=== PATIENT | female | born 2000 | race Caucasian/White ===

== ENCOUNTER → 2024-08-02 | Day surgery (SDC) | payer BC ==
[~2024-08-02] MED LIST: FAMOTIDINE20 MG PO; FENTANYL CITRATE/PF 100MCG/2 ML INJ ONE; LIDOCAINE HCL 2% LOCAL INJ 5 ML SDV VIAL INJ ONE; PROPOFOL IV EMULSION 10 MG/ML 20 ML VIAL ONE
[2024-08-02] MEDS: LACTATED RINGER'S 1,000 ML ONE (06:49)
[2024-08-02 08:35] VITALS: BP 100/63; PULSE 54; RESP 18; TEMP 98.2; O2SAT 99
== END | disposition home or self-care (01) ==
LOC: OR 06:00
PROVIDERS: ATTEND Internal Medicine Gastroenterology
DX: K21.9 Gastro-esophageal reflux disease without esophagitis (principal); K29.70 Gastritis, unspecified, without bleeding; K20.90 Esophagitis, unspecified without bleeding; Z91.041 Radiographic dye allergy status
CPT/HCPCS: 43239; 81025; J2003; J2470; J2704; J3010; J7121